=== PATIENT | female | born 2000 | race African-American/Black ===

== ENCOUNTER 2022-09-14 22:24 | Inpatient (IN) ==
[2022-09-14] MEDS ORDERED: MAGNESIUM SULFATE 1GM / D5W BAG IV STA (22:33)
--- NOTE | 2022-09-14 22:37 | Emergency Department Note ---
History of Present Illness General Chief complaint: Asthma Stated complaint: ASTHMA ATTACK Time Seen by Provider: 09/14/22 22:27 History of Present Illness This 22-year-old female with asthma presents to the ER for asthma exacerbation. EMS gave Solu-Medrol and 2 nebulizers. Patient states she has been wheezing for the past several days. She is on no maintenance medicines for her asthma. She tried her inhaler with no relief. Patient denies fever, chills, flulike illness. She has been hospitalized before for her asthma. She does not smoke. Home Medications Medication Instructions Recorded Confirmed Type albuterol sulfate 2.5 mg/3 mL 2.5 mg inhalation DIRECTED PRN 09/14/22 09/14/22 History (0.083 %) solution for nebulization Shortness Of Breath Or Wheezing albuterol sulfate 90 mcg/actuation 2 puff inhalation DIRECTED PRN 09/14/22 09/14/22 History aerosol inhaler Shortness Of Breath Or Wheezing Allergies Allergy/AdvReac Type Severity Reaction Status Date / Time cat dander Allergy Severe CAN Verified 09/14/22 22:50 TRIGGER ASTHMA ATTACK dog dander Allergy Severe CAN Verified 09/14/22 22:50 TRIGGER ASTHMA ATTACK house dust Allergy Severe CAN Verified 09/14/22 22:50 TRIGGER ASTHMA ATTACK pollen extracts Allergy Severe CAN Verified 09/14/22 22:50 TRIGGER ASTHMA ATTACK Past Med/Surg History Medical History (Updated 09/15/22 @ 01:04 by Romie Yanes MD) Asthma Social History Smoking Status: Never smoker Feels Safe at Home: Yes Review of Systems A total of 10 systems reviewed and were otherwise negative Physical Exam Vital Signs Vital Signs - 24 hr 09/14/22 22:32 09/14/22 22:57 09/14/22 22:57 Pulse Rate 126 H 122 H Pulse Rate [Apical] Respiratory Rate 28 H Respiratory Effort / Characteristics Respiratory Depth Respiratory Pattern Blood Pressure [Left Arm] Blood Pressure Mean [Left Arm] Pulse Oximetry 89 L 97 Oxygen Delivery Method Oxymask Oxymask Oxygen Flow Rate 2 Fraction of Inspired Oxygen Oxygen Flow Rate - Titration 2 Pulse Oximetry Post Tiitration 96 09/14/22 23:01 09/14/22 23:07 09/14/22 23:12 Pulse Rate Pulse Rate [Apical] 119 H 128 H Respiratory Rate 24 24 Respiratory Effort / Characteristics Accessory Muscle Use Non-Labored Spontaneous Respiratory Depth Normal Respiratory Pattern Blood Pressure [Left Arm] Blood Pressure Mean [Left Arm] Pulse Oximetry 98 95 Oxygen Delivery Method Room Air Oxymask Oxymask Oxygen Flow Rate 2 2 Fraction of Inspired Oxygen Oxygen Flow Rate - Titration Pulse Oximetry Post Tiitration 09/14/22 23:19 09/14/22 23:23 09/14/22 23:34 Pulse Rate 110 H Pulse Rate [Apical] 129 H 107 H Respiratory Rate 24 18 22 Respiratory Effort / Characteristics Accessory Muscle Use Labored Labored Accessory Muscle Use Labored Respiratory Depth Shallow Respiratory Pattern Rapid/Shallow Blood Pressure [Left Arm] 100/85 Blood Pressure Mean [Left Arm] 90 Pulse Oximetry 96 100 100 Oxygen Delivery Method Oxymask Nebulizer Oxygen Flow Rate 3 8 Fraction of Inspired Oxygen 35 Oxygen Flow Rate - Titration Pulse Oximetry Post Tiitration 09/15/22 00:07 Pulse Rate Pulse Rate [Apical] 118 H Respiratory Rate 22 Respiratory Effort / Characteristics Non-Labored Spontaneous Respiratory Depth Normal Respiratory Pattern Blood Pressure [Left Arm] 152/99 H Blood Pressure Mean [Left Arm] 116 Pulse Oximetry 100 Oxygen Delivery Method BiPAP Oxygen Flow Rate Fraction of Inspired Oxygen Oxygen Flow Rate - Titration Pulse Oximetry Post Tiitration PHYSICAL EXAM: Vital Signs: Reviewed Nurse's notes. Oxygen saturation was 98% on room air. GENERAL: Pleasant female with audible wheeze, Alert, oriented and coherent. The patient is barely able to speak in complete sentences. NECK: Supple, non-tender. CHEST: Symmetrical expansion. + retractions + accessory muscle use. HEART: Regular rate and normal heart sounds, LUNGS: Breath sounds equal but significantly diminished in intensity on both sides. Bilateral wheezes heard but no rales or pleuritic rub. SKIN: The skin was without rashes, erythema, edema, or bruising. There is no tenting of the skin. Capillary reflex less than 2 seconds. HEAD: Normocephalic atraumatic. EARS: External auditory canals clear, tympanic membranes pearly hill without robbie thema or effusion bilaterally. EYES: Pupils equal round and reactive to light and accommodation. Conjunctivae without injection, sclerae without icterus. Extraocular movements intact. NOSE: Patent, turbinates without inflammation or discharge. MOUTH: Mucous membranes moist. Pharynx without erythema or exudate. Uvula midline. Airway patent. Tongue does not deviate. ABDOMEN: Positive bowel sounds x 4. Normal tympanic percussion. Soft, nontender, without masses or organomegaly. Harding sign negative. No guarding or rebound tenderness. MUSCULOSKELETAL: No muscle atrophy, erythema, or edema noted. NEURO: Patient was alert and oriented to person place and time. Normal sensation to light and sharp touch. No focal neurological deficits. Course Administered Medications Diphenhydramine HCl (Diphenhydramine 50 Mg/Ml Vial) 25 mg IV Q4H PRN PRN Reason: Dyspnea Stop: 10/15/22 01:01 Last Admin: 09/15/22 01:25 Dose: 25 mg Documented By: LEONARDO Discontinued Medications Albuterol (Albut/Ipratrop 3mg/0.5mg Neb 3 Ml Vial) 3 ml NEB NOW STA; Protocol Stop: 09/14/22 23:11 Last Admin: 09/15/22 01:26 Dose: Not Given Documented By: LEONARDO Cetirizine HCl (Cetirizine Hcl 10 Mg Tablet) 10 mg PO NOW ONE Stop: 09/15/22 01:03 Last Admin: 09/15/22 01:26 Dose: 10 mg Documented By: LEONARDO Epinephrine (Racepinephrine 2.25% Nebu Soln 0.5 Ml Vial) 0.5 ml NEB NOW STA Stop: 09/14/22 23:11 Last Admin: 09/14/22 23:18 Dose: 0.5 ml Documented By: FRAN Famotidine (Famotidine 20mg/5ml Iv Push) 20 mg IV NOW STA Stop: 09/15/22 01:11 Last Admin: 09/15/22 01:29 Dose: 20 mg Documented By: LEONARDO Magnesium Sulfate/Dextrose (Magnesium Sulfate 1gm / D5w Bag) 2 gm IV NOW STA Stop: 09/14/22 22:34 Last Admin: 09/14/22 22:42 Dose: 2 gm Documented By: TRAN Critical Care Time Critical Care Time: Yes Total Critical Care Time: 35 I have personally spent 35 minutes of critical care time in the direct management of this patient. This includes bedside care, interpretation of diagnostic studies, and testing, discussion with consultants, patient, and family members, and other required patient management activities. This 35 minutes is in excess of all separately billable procedures. Medical Decision Making Medical Records Attestation: I reviewed the patient's medical records. Home Medications Current Medication List: was personally reviewed by me Laboratory Data Attestation: I reviewed the patient's lab results. 09/14/22 22:33 09/14/22 22:33 Lab Results 09/14/22 09/14/22 09/14/22 Range/Units 22:33 22:33 22:33 WBC 9.51 (4.8-10.8) K/ul RBC 4.58 (4.20-5.40) M/uL Hgb 13.1 (12.0-16.0) g/dl Hct 41.0 (37.0-47.0) % MCV 89.5 (80.0-100.0) fL MCH 28.6 (25.0-34.0) pg MCHC 32.0 (32.0-36.0) g/dL RDW Std Deviation 41.1 (36.4-46.3) fL RDW Coeff of Damion 12.6 (11.5-14.5) % Plt Count 211 (130-400) K/uL MPV 12.5 H (9.4-12.4) fL Immature Gran % (Auto) 0.6 % Neut % (Auto) 43.6 % Lymph % (Auto) 39.2 % [place] % (Auto) 6.1 % Eos % (Auto) 9.7 % Baso % (Auto) 0.8 % Neut # (Auto) 4.14 (1.40-6.50) K/uL Lymph # (Auto) 3.73 H (1.2-3.4) K/uL [place] # (Auto) 0.58 (0.11-0.59) K/uL Eos # (Auto) 0.92 H (0-0.50) K/uL Baso # (Auto) 0.08 (0-0.2) K/uL Immature Gran # (Auto) 0.06 (0.01-0.20) K/uL VBG pH (7.36-7.41) VBG pCO2 (38-50) mmHg VBG pO2 mmHg VBG HCO3 mmol/L VBG O2 Saturation % VBG Base Excess mEq/L Sodium 139 (136-145) mmol/L Potassium 4.0 (3.5-5.1) mmol/L Chloride 104 (98-107) mmol/L Carbon Dioxide 29 (21-32) mmol/L Anion Gap 6 (3-11) BUN 10 (6-23) mg/dl Creatinine 0.93 (0.6-1.2) mg/dl Est Cr Clr Drug Dosing Not Reportable Est GFR ( Amer) 101.8 ml/min Est GFR (Non-Af Amer) 87.9 ml/min BUN/Creatinine Ratio 10.8 (10-20) Glucose 159 H (70-99(Fasting)) mg/dl Calcium 8.9 (8.6-10.3) mg/dl Total Bilirubin 0.2 (0.2-1.0) mg/dl AST 10 L (13-39) U/L ALT 7 (7-52) U/L Alkaline Phosphatase 60 (34-104) U/L Troponin I High Sens 4.1 (0-14) pg/ml Total Protein 7.0 (6.0-8.3) gm/dl Albumin 4.2 (3.4-5.0) gm/dl Globulin 2.8 (2.5-4.0) gm/dl Albumin/Globulin Ratio 1.5 (0.9-2) HCG, Qual Negative (Negative) SARS-CoV-2, RNA, NAAT (NEGATIVE) 09/14/22 09/14/22 Range/Units 22:56 23:24 WBC (4.8-10.8) K/ul RBC (4.20-5.40) M/uL Hgb (12.0-16.0) g/dl Hct (37.0-47.0) % MCV (80.0-100.0) fL MCH (25.0-34.0) pg MCHC (32.0-36.0) g/dL RDW Std Deviation (36.4-46.3) fL RDW Coeff of Damion (11.5-14.5) % Plt Count (130-400) K/uL MPV (9.4-12.4) fL Immature Gran % (Auto) % Neut % (Auto) % Lymph % (Auto) % [place] % (Auto) % Eos % (Auto) % Baso % (Auto) % Neut # (Auto) (1.40-6.50) K/uL Lymph # (Auto) (1.2-3.4) K/uL [place] # (Auto) (0.11-0.59) K/uL Eos # (Auto) (0-0.50) K/uL Baso # (Auto) (0-0.2) K/uL Immature Gran # (Auto) (0.01-0.20) K/uL VBG pH 7.21 L (7.36-7.41) VBG pCO2 74 H (38-50) mmHg VBG pO2 28 mmHg VBG HCO3 30 mmol/L VBG O2 Saturation < 60.0 % VBG Base Excess -0.3 mEq/L Sodium (136-145) mmol/L Potassium (3.5-5.1) mmol/L Chloride (98-107) mmol/L Carbon Dioxide (21-32) mmol/L Anion Gap (3-11) BUN (6-23) mg/dl Creatinine (0.6-1.2) mg/dl Est Cr Clr Drug Dosing Est GFR ( Amer) ml/min Est GFR (Non-Af Amer) ml/min BUN/Creatinine Ratio (10-20) Glucose (70-99(Fasting)) mg/dl Calcium (8.6-10.3) mg/dl Total Bilirubin (0.2-1.0) mg/dl AST (13-39) U/L ALT (7-52) U/L Alkaline Phosphatase (34-104) U/L Troponin I High Sens (0-14) pg/ml Total Protein (6.0-8.3) gm/dl Albumin (3.4-5.0) gm/dl Globulin (2.5-4.0) gm/dl Albumin/Globulin Ratio (0.9-2) HCG, Qual (Negative) SARS-CoV-2, RNA, NAAT NEGATIVE (NEGATIVE) Imaging Data Attestation: I personally reviewed and interpreted this imaging study as follows: MDM Narrative Prior records/ancillary studies reviewed. Triage Nursing notes reviewed. Additional history obtained from the EMS. The patient's history was concerning for respiratory difficulties. Differential diagnosis: Etiologies such as infections, reactive airway disease, pneumonia, pneumothorax, COPD, CHF, cardiac ischemia, pulmonary embolism, musculoskeletal, gastrointestinal, as well as others were entertained. Physical examination: As above. ER treatment provided: An order was placed for continuous cardiac monitoring. The monitor shows a rate of 60-1 50 with a sinus rhythm per my interpretation. EMS gave Solu-Medrol and 2 nebulizers. Patient was given magnesium and fluids. Racemic epi was ordered Patient was placed on BiPAP. On reassessment the patient felt better. Diagnostic interpretation by me: The electrocardiogram was ordered for SOB. ECG:Normal sinus poor baseline, no acute ST-T wave changes. Impression sinus ta chycardia 132 independentlyinterpreted by myself I think arrhythmia is unlikely. EKG shows normal sinus rhythm with no interval abnormalities such as QT prolongation or WPW. There are no findings to suggest Brugada syndrome. Cardiac monitoring in the emergency department reveals no tachycardic or bradycardic dysrhythmia. Hypertrophic cardiomyopathy was considered but there are no clear historical elements pointing toward this. EKG is not suggestive. The QRS voltage is not extremely large and there are no suggestive Q waves. The labs Independently Interpreted by myself revealed no worrisome leukocytosis, negative hCG. VBG was reviewed and patient was placed on BiPAP. Imaging studies: Chest x-ray with no acute consolidation, pneumothorax or free air per my independent interpretation Patient was first seen at 2230 and observation time began at 2230 and was necessary in order to determine any infectious, toxicologic or respiratory etiology. Upon reevaluation, 1 hours of observation feel that the patient should be admitted. Consultation: A consultation was placed with the hospitalist. The case was discussed and diagnostics were reviewed. The patient was evaluated in the ER for further treatment. This appears to be consistent with status asthmaticus who was acidotic and hypercarbic. Patient still struggling to breathe. VBG was reviewed. She was placed on BiPAP. She was medicated as above. EMS gave steroids. She had received 2 nebulizers by EMS. No pneumonia on x-ray. Medicine was contacted and the case was discussed. Patient will be admitted to the medical service. Labs and diagnostics were independent interpreted by myself. Patient is agreeable to treatment plan. By the evaluation outlined above emergent etiologies such as CHF, cardiac ischemia, pulmonary embolism, pneumonia, pneumothorax, musculoskeletal, serious bacterial infections, as well as others were deemed relatively unlikely. The pt informed about the findings as listed above. All questions were answered and pleased with the treatment. The chart was completed utilizing [employer] voice recognition software. Grammatical errors, random word insertions, pronoun errors, and incomplete sentences are an occassional consequence of this system due to software limitations, ambient noise, and hardware issues. Any formal questions or concerns about the content, text, or information contained within the body of this dictation should be directly addressed to the physician certified dental assistant for clarification. Impression & Plan Asthma with status asthmaticus Discharge Plan Visit Data Chief Complaint: Asthma Stated Complaint: ASTHMA ATTACK ED Provider: Ricco Putnam ED Midlevel Provider: Amy Templeton Discharge Problem: Asthma with status asthmaticus Patient Disposition: Admitted As Inpatient Condition: Good Forms Stand Alone Forms: [facility] Prescriptions Prescriptions: No Action albuterol sulfate 2.5 mg /3 mL (0.083 %) Solution For Nebulization 2.5 mg INHALATION DIRECTED PRN (Reason: Shortness Of Breath Or Wheezing) albuterol sulfate 90 mcg/actuation Hfa Aerosol Inhaler 2 puff INHALATION DIRECTED PRN (Reason: Shortness Of Breath Or Wheezing) Referrals Referrals: PCP,NO [Physician] - Asthma with status asthmaticus Qualifiers: Asthma severity: severe Asthma persistence: persistent Qualified Code(s): J45.52 - Severe persistent asthma with status asthmaticus
[2022-09-14 22:53] LABS: Basophils # (auto) 0.08 K/uL (0-0.2); Basophils % (auto) 0.8 %; Eosinophils # (auto) 0.92 K/uL (0-0.50); Eosinophils % (auto) 9.7 %; Hemoglobin 13.1 g/dl (12.0-16.0); Immature Granulocytes # (auto) 0.06 K/uL (0.01-0.20); Immature Granulocytes % (auto) 0.6 %; Lymphocytes # (auto) 3.73 K/uL (1.2-3.4); Lymphocytes % (auto) 39.2 %; Mean Corpuscular Hemoglobin 28.6 pg (25.0-34.0); Mean Corpuscular Volume 89.5 fL (80.0-100.0); Mean Platelet Volume 12.5 fL (9.4-12.4); Monocytes # (auto) 0.58 K/uL (0.11-0.59); Monocytes % (auto) 6.1 %; Neutrophils # (auto) 4.14 K/uL (1.40-6.50); Neutrophils % (auto) 43.6 %; Platelet Count 211 K/uL (130-400); RDW Coefficient of Variation 12.6 % (11.5-14.5); RDW Standard Deviation 41.1 fL (36.4-46.3); Red Blood Count 4.58 M/uL (4.20-5.40); White Blood Count 9.51 K/ul (4.8-10.8)
[2022-09-14 23:05] LABS: Alanine Aminotransferase 7 U/L (7-52); Albumin Globulin Ratio 1.5 (0.9-2); Albumin Level 4.2 gm/dl (3.4-5.0); Alkaline Phosphatase 60 U/L (34-104); Anion Gap 6 (3-11); Aspartate Aminotransferase 10 U/L (13-39); BUN Creatinine Ratio 10.8 (10-20); Bilirubin,Total 0.2 mg/dl (0.2-1.0); Blood Urea Nitrogen 10 mg/dl (6-23); Calcium 8.9 mg/dl (8.6-10.3); Carbon Dioxide 29 mmol/L (21-32); Chloride 104 mmol/L (98-107); Est GFR (African American) 101.8 ml/min; Est GFR (Non-African American) 87.9 ml/min; Globulin 2.8 gm/dl (2.5-4.0); Glucose 159 mg/dl (70-99(Fasting)); Sodium 139 mmol/L (136-145)
[2022-09-14 23:05] LABS: Base Excess VBG -0.3 mEq/L; HCO3 VBG 30 mmol/L; Oxygen Saturation VBG < 60.0 %; PCO2 VBG 74 mmHg (38-50); PO2 VBG 28 mmHg; pH VBG 7.21 (7.36-7.41)
[2022-09-14 23:08] LABS: Pregnancy Test, Serum Negative (Negative)
[2022-09-14] MEDS ORDERED: ALBUT/IPRATROP 3MG/0.5MG NEB 3 ML VIAL NEB STA (23:10)
[2022-09-14] MEDS ORDERED: RACEPINEPHRINE 2.25% NEBU SOLN 0.5 ML VIAL NEB STA (23:10)
[2022-09-14 23:11] LABS: Troponin I High Sensitivity 4.1 pg/ml (0-14)
--- NOTE | 2022-09-15 00:18 | History & Physical Report ---
Date of Service September 15, 2022 Assessment & Plan (1) Asthmatic bronchitis with acute exacerbation: (2) Allergic symptoms: (3) Asthma with status asthmaticus: Plan Status asthmaticus/asthma with acute bronchitis/multiple allergies- Received Solu-Medrol and nebulizers x2 by EMS in route From the ED received magnesium sulfate 2 g IV, racemic epi treatment and a DuoNeb Solu-Medrol 40 mg IV every 8 hours Famotidine 20 mg IV every 12 hours Benadryl 25 mg IV every 4 hours as needed Cetirizine 10 mg p.o. now and every morning Duonebs every 4 hours while awake and every 2 hours when necessary. Continue BiPAP for now, taper downward to nasal cannula as symptoms improve Admit to monitored bed Racemic epi if recurrent symptoms unresponsive to above History of Present Illness Chief Complaint: The patient presents to the emergency department with shortness of breath and more frequent use of nebulizer over the past several days, which in particular worsened over the past 24 hours. She was brought to the emergency department by EMS, who gave her Solu-Medrol and 2 nebulizer treatments in route. Primary Care Provider: [facility] The patient is a 22-year-old female with a past medical history including asthma and asthma exacerbations, multiple allergies including to dust, pollen, cats and dogs. The patient presents as noted above. Upon arrival to the emergency department she was placed on BiPAP, and given magnesium sulfate 2 g IV, racemic epi x1, and a DuoNeb treatment. The patient did stabilize somewhat to these treatments, but was still wheezing considerably, and was referred for evaluation for admission. Her previous hospital admission was August 2021. She does also report a cough of green discolored sputum Allergies Allergy/AdvReac Type Severity Reaction Status Date / Time cat dander Allergy Severe CAN Verified 09/14/22 22:50 TRIGGER ASTHMA ATTACK dog dander Allergy Severe CAN Verified 09/14/22 22:50 TRIGGER ASTHMA ATTACK house dust Allergy Severe CAN Verified 09/14/22 22:50 TRIGGER ASTHMA ATTACK pollen extracts Allergy Severe CAN Verified 09/14/22 22:50 TRIGGER ASTHMA ATTACK Home Medications Medication Instructions Recorded Confirmed Type albuterol sulfate 2.5 mg/3 mL 2.5 mg inhalation DIRECTED PRN 09/14/22 09/14/22 History (0.083 %) solution for nebulization Shortness Of Breath Or Wheezing albuterol sulfate 90 mcg/actuation 2 puff inhalation DIRECTED PRN 09/14/22 09/14/22 History aerosol inhaler Shortness Of Breath Or Wheezing Past Med/Surg History Medical History (Updated 09/15/22 @ 01:04 by Romie Yanes MD) Asthma Social History Smoking Status: Never smoker Feels Safe at Home: Yes Review of Systems Review of Systems: the patient denies chest pain, palpitations, lower extremity swelling, sore throat, fevers, chills, sweats, nausea, vomiting, diarrhea , constipation, abdominal pain, pelvic pain, blood in urine or stool, dysuria, urinary frequency or urgency, lightheadedness, dizziness, headache, memory loss, loss of consciousness, rash, abnormal bruising or bleeding, imbalance, focal or generalized weakness, numbness or tingling in arms or legs, generalized arthralgias or myalgias, back or neck pain, or night sweats. The review of systems is otherwise negative other than for that already noted above, and at least 10 systems have been reviewed. Physical Exam Physical Exam: The patient is awake, alert and oriented 3, well developed and well nourished, normocephalic and atraumatic, lying in bed and in no acute distress. HEENT--PERRL, EOMI, mucous membranes and oropharynx dry. Neck--supple. No JVD. No bruits. Thyroid normal, trachea midline, no adenopathy. Heart--normal S1 and S2. No murmurs, rubs or gallops. Lungs--diffuse inspiratory and extra wheezing bilaterally., Mild respiratory distress, no accessory muscle use. Abdomen--normal bowel sounds and soft. Nontender. Nondistended, no hernias or masses, no organomegaly. Extremities--no cyanosis or clubbing. No edema. Dermatologic--normal skin turgor, normal color, no abnormal lymph nodes, no rash. Neurologic--cranial nerves II through XII grossly intact. Rheumatologic--normal range of motion. Psychiatric--normal affect. Results & Data Results & Data Vital Signs (Past 12 Hours) Vital Signs Pulse Pulse Resp BP Pulse Ox O2 Del Method O2 Flow Rate 09/15/22 00:07 118 H 22 152/99 H 100 BiPAP 09/14/22 23:34 110 H 22 100 09/14/22 23:23 107 H 18 100/85 100 Nebulizer 8 09/14/22 23:19 129 H 24 96 Oxymask 3 09/14/22 23:12 128 H 24 95 Oxymask 2 09/14/22 23:07 119 H 24 98 Oxymask 2 09/14/22 23:01 Room Air 09/14/22 22:57 122 H 28 H 97 Oxymask 2 09/14/22 22:57 89 L Oxymask 09/14/22 22:32 126 H FiO2 09/15/22 00:07 09/14/22 23:34 35 09/14/22 23:23 09/14/22 23:19 09/14/22 23:12 09/14/22 23:07 09/14/22 23:01 09/14/22 22:57 09/14/22 22:57 09/14/22 22:32 Laboratory Results Laboratory Results WBC 9.51 K/ul (4.8-10.8) 09/14/22 22:33 RBC 4.58 M/uL (4.20-5.40) 09/14/22 22:33 Hgb 13.1 g/dl (12.0-16.0) 09/14/22 22:33 Hct 41.0 % (37.0-47.0) 09/14/22 22:33 MCV 89.5 fL (80.0-100.0) 09/14/22 22:33 MCH 28.6 pg (25.0-34.0) 09/14/22 22:33 MCHC 32.0 g/dL (32.0-36.0) 09/14/22 22:33 RDW Std Deviation 41.1 fL (36.4-46.3) 09/14/22 22:33 RDW Coeff of Damion 12.6 % (11.5-14.5) 09/14/22 22:33 Plt Count 211 K/uL (130-400) 09/14/22 22:33 MPV 12.5 fL (9.4-12.4) H 09/14/22 22:33 Immature Gran % (Auto) 0.6 % 09/14/22 22:33 Neut % (Auto) 43.6 % 09/14/22 22:33 Lymph % (Auto) 39.2 % 09/14/22 22:33 [place] % (Auto) 6.1 % 09/14/22 22:33 Eos % (Auto) 9.7 % 09/14/22 22:33 Baso % (Auto) 0.8 % 09/14/22 22:33 Neut # (Auto) 4.14 K/uL (1.40-6.50) 09/14/22 22: Lymph # (Auto) 3.73 K/uL (1.2-3.4) H 09/14/22 22:33 [place] # (Auto) 0.58 K/uL (0.11-0.59) 09/14/22 22:33 Eos # (Auto) 0.92 K/uL (0-0.50) H 09/14/22 22:33 Baso # (Auto) 0.08 K/uL (0-0.2) 09/14/22 22: Immature Gran # (Auto) 0.06 K/uL (0.01-0.20) 09/14/22 22:33 VBG pH 7.21 (7.36-7.41) L 09/14/22 22:56 VBG pCO2 74 mmHg (38-50) H 09/14/22 22:56 VBG pO2 28 mmHg 09/14/22 22:56 VBG HCO3 30 mmol/L 09/14/22 22:56 VBG O2 Saturation < 60.0 % 09/14/22 22:56 VBG Base Excess -0.3 mEq/L 09/14/22 22:56 Sodium 139 mmol/L (136-145) 09/14/22 22:33 Potassium 4.0 mmol/L (3.5-5.1) 09/14/22 22: Chloride 104 mmol/L (98-107) 09/14/22 22: Carbon Dioxide 29 mmol/L (21-32) 09/14/22 22:33 Anion Gap 6 (3-11) 09/14/22 22:33 BUN 10 mg/dl (6-23) 09/14/22 22:33 Creatinine 0.93 mg/dl (0.6-1.2) 09/14/22 22: Est Cr Clr Drug Dosing Not Reportable 03/29/23 22:33 Est GFR ( Amer) 101.8 ml/min 09/14/22 22:33 Est GFR (Non-Af Amer) 87.9 ml/min 09/14/22 22:33 BUN/Creatinine Ratio 10.8 (10-20) 09/14/22 22:33 Glucose 159 mg/dl (70-99(Fasting)) H 09/14/22 22:33 Calcium 8.9 mg/dl (8.6-10.3) 09/14/22 22:33 Total Bilirubin 0.2 mg/dl (0.2-1.0) 09/14/22 22:33 AST 10 U/L (13-39) L 09/14/22 22:33 ALT 7 U/L (7-52) 09/14/22 22:33 Alkaline Phosphatase 60 U/L (34-104) 09/14/22 22:33 Troponin I High Sens 4.1 pg/ml (0-14) 09/14/22 22:33 Total Protein 7.0 gm/dl (6.0-8.3) 09/14/22 22:33 Albumin 4.2 gm/dl (3.4-5.0) 09/14/22 22:33 Globulin 2.8 gm/dl (2.5-4.0) 09/14/22 22:33 Albumin/Globulin Ratio 1.5 (0.9-2) 09/14/22 22:33 HCG, Qual Negative (Negative) 09/14/22 22:33 SARS-CoV-2, RNA, NAAT NEGATIVE (NEGATIVE) 09/14/22 23:24 Code Status & VTE Plan Code Status Full code VTE Prophylaxis Plan VTE Prophylaxis will be ordered: Yes PG Care Time/CCT Total # of Minutes Spent Total Time Spent with Patient: Total time spent is greater than 50% in coordination of care (as documented) at patient's floor/unit and/or counseling patient: Coding Level of Care Code 27070 INT INP/OBS CARE 3/75MIN Diagnoses Asthmatic bronchitis with acute exacerbation J45.901 Allergic symptoms T78.40XA Asthma with status asthmaticus J45.52 Asthma persistence: persistent Asthma severity: severe (3) Asthma with status asthmaticus Asthma persistence: persistent Asthma severity: severe Qualified Code(s): J45.52 - Severe persistent asthma with status asthmaticus
[2022-09-15] MEDS ORDERED: diphenhydrAMINE 50 MG/ML VIAL IV PRN (01:02)
[2022-09-15] MEDS ORDERED: CETIRIZINE HCL 10 MG TABLET PO ONE (01:02)
[2022-09-15] MEDS ORDERED: FAMOTIDINE 20MG/5ML IV PUSH IV STA (01:10)
[2022-09-15] MEDS ORDERED: ONDANSETRON INJ 2 MG/ML 2 ML VIAL IV PRN (01:43)
[2022-09-15] MEDS ORDERED: ACETAMINOPHEN 325 MG TAB PO PRN (01:43)
--- NOTE | 2022-09-15 01:52 | Emergency Department Note ---
ED Visit Note Physician Evaluation Note: Patient was seen in conjunction with the midlevel provider. Please see the midlevel provider note for full details of the patient's visit. I have personally evaluated and examined this patient. Patient presented to the ED with shortness of breath, this is in the setting of known asthma, patient arrived in respiratory distress, was given multiple DuoNeb breathing treatments and racemic epinephrine, IV magnesium, patient was ultimately placed on BiPAP, venous blood gas shows evidence of acidosis with hypercarbia. On my assessment the patient is on BiPAP, she is feeling much improved, still does have some moderate wheezing on my exam but otherwise states that her breathing is improved, she does not appear to be in acute distress on my evaluation. Patient is symptomatically improved however given her lab work and significant wheezing she will be maintained on BiPAP and admitted to the hospitalist service for further care. Patient was in agreement to this plan and she was admitted in improved condition. I agree with assessment and plan of FAHAD Segovia DO .
[2022-09-15] MEDS: methylPREDNISolone 40 MG in SYRINGE 0 ML IV SCH ×3 (02:00→17:15)
[2022-09-15] MEDS: AZITHROMYCIN 500 MG in DEXTROSE 5% 250 ML IV SCH (02:05)
[2022-09-15] MEDS ORDERED: ALBUT/IPRATROP 3MG/0.5MG NEB 3 ML VIAL ONE (02:27)
[2022-09-15] MEDS ORDERED: ALBUT/IPRATROP 3MG/0.5MG NEB 3 ML VIAL NEB STA (04:32)
[2022-09-15] MEDS: ALBUT/IPRATROP 3MG/0.5MG NEB 3 ML VIAL NEB SCH ×5 (07:00→19:45)
--- NOTE | 2022-09-15 07:18 | XRay Report ---
XR chest 1V portable CLINICAL HISTORY: dyspnea TECHNIQUE: Single frontal radiograph of the chest was obtained. Comparison: None available at the time of this dictation. FINDINGS: No lines and tubes are seen. The cardiomediastinal silhouette is normal. The lungs are clear. No evid ence of pleural effusion or pneumothorax. IMPRESSION: No acute chest disease. ACT 112: Negative or not required by law. Electronically signed by: Manav García M.D. 09/15/2022 7:16 AM
[2022-09-15] MEDS: FAMOTIDINE 20 MG in SYRINGE 3 ML IV SCH ×2 (09:03→20:28)
[2022-09-15] MEDS: CETIRIZINE HCL 10 MG TABLET PO SCH (09:03)
[2022-09-15 09:28] LABS: Base Excess VBG -3.7 mEq/L; HCO3 VBG 22 mmol/L; Oxygen Saturation VBG 94.6 %; PCO2 VBG 42 mmHg (38-50); PO2 VBG 67 mmHg; pH VBG 7.33 (7.36-7.41)
[2022-09-15 10:06] LABS: Calcium 9.2 mg/dl (8.6-10.3); Magnesium 2.1 mg/dl (1.7-2.4); Potassium 4.5 mmol/L (3.5-5.1)
[2022-09-15 10:14] LABS: BUN Creatinine Ratio 12.9 (10-20); Est GFR (African American) 143.5 ml/min; Est GFR (Non-African American) 123.9 ml/min; Phosphorus 3.8 mg/dl (2.5-4.9)
[2022-09-15 10:20] LABS: Adenovirus PCR Not Detected (NotDetected); Bordetella parapertussis PCR Not Detected (NotDetected); Bordetella pertussis PCR Not Detected (NotDetected); Chlamydia pneumoniae PCR Not Detected (NotDetected); Coronavirus 229E PCR Not Detected (NotDetected); Coronavirus CoV-2 (COVID19)PCR Not Detected (NotDetected); Coronavirus HKU1 PCR Not Detected (NotDetected); Coronavirus NL63 PCR Not Detected (NotDetected); Coronavirus OC43PCR Not Detected (NotDetected); Human Metapneumovirus PCR Not Detected (NotDetected); Influenza A PCR Not Detected (NotDetected); Influenza B PCR Not Detected (NotDetected); Mycoplasma pneumoniae PCR Not Detected (NotDetected); Parainfluenza Virus 1 PCR Not Detected (NotDetected); Parainfluenza Virus 2 PCR Not Detected (NotDetected); Parainfluenza Virus 3 PCR Not Detected (NotDetected); Parainfluenza Virus 4 PCR Not Detected (NotDetected); Respiratory Syncytial VirusPCR Not Detected (NotDetected); Rhinovirus/Enterovirus PCR Not Detected (NotDetected)
--- NOTE | 2022-09-15 14:43 | Hospitalist Progress Note ---
Date of Service September 15, 2022 Assessment & Plan (1) Acute respiratory failure with hypoxia and hypercarbia: Plan: 2nd to #2 SEVERE resp failure with resp acidosis and very high pCO2 fortunately she improved with use of BIPAP all night now on to NC o2 VBG this am improved cont to Rx #2 (2) Asthma with status asthmaticus: Plan: SEVERE exacerbation in the setting of uncontrolled, severe, persistent asthma with daily symptoms. cont IV steroids 40mg TID. cont nebs. add mucinex. flutter valve/incentive toro. pulmonary consultation - defer to them selection of controller agents. she will need intensive outpatient f/u given the severity of her asthma. send sputum cx - r/o bacterial superinfection. resp BioFire panel obtained - completely negative. allergy induced?? does have eosinophilia. (3) Severe persistent asthma: Plan: will need ICS/LABA upon discharge - high dose consider singulair - likely has underlying allergies needs outpatient pulm f/u and PFTs, etc needs education about her asthma - triggers, etc see above appreciate pulm consutation (4) Snoring: Plan: needs sleep study marcos after discharge (5) Allergic symptoms: Plan: consider singulair cont zyrtec consider nasal steroid (6) Peripheral eosinophilia: (7) Obesity (BMI 30.0-34.9): Plan: check a1c check TSH check 25-OH vit D - there is strong association with severe vit D def + asthma Admission and Anticipated Discharge Date Admission Date: September 15, 2022 Subjective patient has had asthma since being a young child father has asthma last hospitalization - 06/2021 she has had daily asthma symptoms "for months" apparently was treated for ?acute sinusitis 3-4 months ago back home and "felt better for a week" since then has been using daily albuterol via nebulizer she is not on controller agents she has cough, congestion, and dyspnea on exertion with minimal exertion for months 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 and is severely limited by her asthma her roommates state she does snore loudly they have a dog at their apartment, and roommates smoke Hookah she herself does not use tobacco Review of Systems Review of Systems: gen - no fevers cv - chest tightness pulm - cough/sputum production/severe wheezing/dyspnea GI - no abd pain Physical Exam Physical Exam: gen - obese, audible wheezing from across the room mouth - MMM neck - no obvious JVD heart - tachy, s1 s2, no murmur lungs - EXTENSIVE wheezing all lung segments ant & post; no rales; airation fair; mild tachypnea noted abd - soft NT ND BS+ ext - no edema, pulses 2+ b/l psych - a/o x 3 Results & Data Results & Data Vital Signs (Past 12 Hours) Vital Signs Temp Pulse Pulse Resp BP Pulse Ox O2 Del Method 09/15/22 11:22 36.3 C L 122 H 19 117/86 99 Nasal Cannula 09/15/22 08:00 Nasal Cannula 09/15/22 10:39 117 H 18 93 Nasal Cannula 09/15/22 09:21 110 H 24 89 L Room Air 09/15/22 08:30 36.5 C 101 H 21 130/77 99 Nasal Cannula 09/15/22 07:00 94 H 21 99 BiPAP 09/15/22 04:55 102 H 98 09/15/22 04:43 109 H 24 96 Nasal Cannula 09/15/22 03:05 105 H 22 96 O2 Flow Rate FiO2 09/15/22 11:22 2 09/15/22 08:00 2 09/15/22 10:39 1.5 09/15/22 09:21 09/15/22 08:30 2 09/15/22 07:00 30 09/15/22 04:55 30 09/15/22 04:43 1 09/15/22 03:05 35 Laboratory Results Laboratory Results - last 24 hr 09/15/22 09/15/22 09/15/22 09:09 09:09 09:15 VBG pH 7.33 L VBG pCO2 42 VBG pO2 67 VBG HCO3 22 VBG O2 Saturation 94.6 VBG Base Excess -3.7 Sodium 138 Potassium 4.5 Chloride 107 Carbon Dioxide 23 Anion Gap 8 BUN 9 Creatinine 0.70 Est Cr Clr Drug Dosing 129.0 Est GFR ( Amer) 143.5 Est GFR (Non-Af Amer) 123.9 BUN/Creatinine Ratio 12.9 Glucose 188 H Calcium 9.2 Phosphorus 3.8 Magnesium 2.1 Adenovirus (PCR) Not Detected B. pertussis DNA (PCR) Not Detected B.parapertussis DNA PCR Not Detected C. pneumoniae DNA (PCR) Not Detected Coronavirus OC43 (PCR) Not Detected Coronavirus HKU1 (PCR) Not Detected Coronavirus 229E (PCR) Not Detected SARS-CoV-2 (PCR) Not Detected Coronavirus NL63 (PCR) Not Detected Human Metapneumovir PCR Not Detected Influenza Type A (PCR) Not Detected Influenza Type B (PCR) Not Detected M. pneumoniae (PCR) Not Detected Parainfluenza 1 (PCR) Not Detected Parainfluenza 2 (PCR) Not Detected Parainfluenza 3 (PCR) Not Detected Parainfluenza 4 (PCR) Not Detected RSV (PCR) Not Detected Entero/Rhino (PCR) Not Detected PG Care Time/CCT Total # of Minutes Spent Total Time Spent with Patient: Total time spent is greater than 50% in coordination of care (as documented) at patient's floor/unit and/or counseling patient: Coding Level of Care Code 36647 SUB INP/OBS CARE 3/50MIN Diagnoses Acute respiratory failure with hypoxia and hypercarbia J96.01; J96.02 Asthma with status asthmaticus J45.52 Asthma persistence: persistent Asthma severity: severe Severe persistent asthma J45.50 Snoring R06.83 Allergic symptoms T78.40XA Peripheral eosinophilia D72.19 Obesity (BMI 30.0-34.9) E66.9 (2) Asthma with status asthmaticus Asthma persistence: persistent Asthma severity: severe Qualified Code(s): J45.52 - Severe persistent asthma with status asthmaticus
--- NOTE | 2022-09-15 15:02 | Pulmonary Consultation ---
Date of Consultation September 15, 2022 Assessment & Plan (1) Asthmatic bronchitis with acute exacerbation: (2) Peripheral eosinophilia: Plan Patient presenting with status asthmaticus and hypercarbia. She remains very bronchospastic on exam and is very symptomatic. We will start the patient on Brovana and Pulmicort twice daily in addition to the current DuoNebs she is receiving. Continue with IV Solu-Medrol. She had evidence of peripheral eosinophilia on admission. She likely has Th2 mediated asthma. She would benefit from high-dose maintenance ICS/LABA inhaler upon discharge. She does have a peak flow meter at home and notes that she rarely uses it. I encouraged her to use this on a regular basis to monitor for early signs of asthma exacerbation. She would benefit from outpatient PFTs and NIOX testing. She may eventually become a candidate for biologic therapy if she continues to have flares despite the use of high-dose ICS/LAMA inhaler. Thank you for allowing me to participate in the care of the patient. We will continue to follow along with you. History of Present Illness Reason for Consultation: Asthma exacerbation Attending Physician: Benjy Hung History of Present Illness History is obtained from discussion with the hospitalist, review of the ER and admitting notes and interview with patient. 22-year-old female with a history of allergic rhinitis and asthma who presented to the hospital yesterday via EMS due to altered mental status. She notes that she was in dance class and suddenly lost consciousness. She came to while in the ambulance. She was found to be hypercarbic on VBG on arrival to the ER. She notes that she was very short of breath and had chest tightness. She does feel that her symptoms have improved today, but she continues to have conversational dyspnea and becomes short of breath soon after completing her nebulizer treatment. 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 She transferred from the [employer] to [facility]. She notes that last year she had an exacerbation and was hospitalized at [place]. She denies any prior history of intubation. She denies ever previously being on BiPAP aside for yesterday evening. She notes that she had only course of prednisone in the past year. She did note that she was diagnosed with "a bacterial infection" in May and was given antibiotics which she later revealed was RSV. I informed her that RSV is not a bacterial infection but rather a viral infection. She notes that she uses her albuterol inhaler 3-4 times a day when out and about outside of her apartment. She uses her nebulizer 4-5 times a day. She notes that she has trouble sleeping due to shortness of breath and this is gotten worse over the past week. She denies any vaping, tobacco abuse or illicit drug abuse. She notes that she did smoke marijuana when in high school about 3 to 4 years ago. Allergies Allergy/AdvReac Type Severity Reaction Status Date / Time cat dander Allergy Severe CAN Verified 09/14/22 22:50 TRIGGER ASTHMA ATTACK dog dander Allergy Severe CAN Verified 09/14/22 22:50 TRIGGER ASTHMA ATTACK house dust Allergy Severe CAN Verified 09/14/22 22:50 TRIGGER ASTHMA ATTACK pollen extracts Allergy Severe CAN Verified 09/14/22 22:50 TRIGGER ASTHMA ATTACK Home Medications Medication Instructions Recorded Confirmed Type albuterol sulfate 2.5 mg/3 mL 2.5 mg inhalation DIRECTED PRN 09/14/22 09/14/22 History (0.083 %) solution for nebulization Shortness Of Breath Or Wheezing albuterol sulfate 90 mcg/actuation 2 puff inhalation DIRECTED PRN 09/14/22 09/14/22 History aerosol inhaler Shortness Of Breath Or Wheezing Patient History Medical History (Updated 09/15/22 @ 15:00 by Jean Carlos Shepard MD) Asthma Peripheral eosinophilia Social History Smoking Status: Never smoker Hx Alcohol Use: No Hx Substance Use: No Preferred Language: Puerto Rican Communication Ability: Effective Principal Solutions Architect Required: No Beliefs That Will Affect Care: None Current Living Situation: Alone Current Living Situation Comment: student at [employer] Other Information That Helps Us Care for You: No Feels Safe at Home: Yes Safety Concerns: Feels Safe At This Time Assistive Devices: None Review of Systems Review of Systems: All systems reviewed & are unremarkable except as noted in HPI & below Physical Exam Physical Exam: PHYSICAL EXAM: Vital Signs: Reviewed Nurse's notes. MENTAL STATUS: Alert, oriented and coherent. NECK: Supple, non-tender. CHEST: Symmetrical expansion, no retractions or use of accessory muscles of respiration. HEART: Regular rate and normal heart sounds, no murmur, gallop or rub. LUNGS: Breath sounds equal but significantly diminished in intensity on both sides. Bilateral wheezes heard but no rales or pleuritic rub. SKIN: Warm, dry, no lesions or cyanosis. ABDOMEN: Soft, non-tender, no masses or organs felt. EXTREMITIES: No swelling, cyanosis or tenderness in the arms or legs. Results & Data Results & Data Vital Signs (Past 12 Hours) Vital Signs Temp Pulse Pulse Resp BP Pulse Ox O2 Del Method 09/15/22 11:22 36.3 C L 122 H 19 117/86 99 Nasal Cannula 09/15/22 08:00 Nasal Cannula 09/15/22 10:39 117 H 18 93 Nasal Cannula 09/15/22 09:21 110 H 24 89 L Room Air 09/15/22 08:30 36.5 C 101 H 21 130/77 99 Nasal Cannula 09/15/22 07:00 94 H 21 99 BiPAP 09/15/22 04:55 102 H 98 09/15/22 04:43 109 H 24 96 Nasal Cannula 09/15/22 03:05 105 H 22 96 O2 Flow Rate FiO2 09/15/22 11:22 2 09/15/22 08:00 2 09/15/22 10:39 1.5 09/15/22 09:21 09/15/22 08:30 2 09/15/22 07:00 30 09/15/22 04:55 30 09/15/22 04:43 1 09/15/22 03:05 35 PG Care Time/CCT Total # of Minutes Spent Total Time Spent with Patient: Total time spent is greater than 50% in coordination of care (as documented) at patient's floor/unit and/or counseling patient: Coding Level of Care Code 83798 IN/OBS CONSULT LVL 5,80M Diagnoses Asthmatic bronchitis with acute exacerbation J45.901 Peripheral eosinophilia D72.19
[2022-09-15] MEDS ORDERED: FORMOTEROL 20 MCG/2 ML VIAL ONE (15:20)
[2022-09-15] MEDS: BUDESONIDE 0.5 MG/2 ML VIAL (PULMICORT) NEB SCH ×2 (15:22→19:44)
[2022-09-15] MEDS: guaiFENesin 600 MG TABCR PO SCH ×2 (15:44→20:29)
[2022-09-15] MEDS ORDERED: ARFORMOTEROL TART 15MCG/2ML VIAL INH SCH (19:00)
[2022-09-15] MEDS: FORMOTEROL 20 MCG/2 ML VIAL INH SCH (19:44)
[2022-09-16] MEDS: AZITHROMYCIN 500 MG in DEXTROSE 5% 250 ML IV SCH (01:43)
[2022-09-16] MEDS: methylPREDNISolone 40 MG in SYRINGE 0 ML IV SCH ×3 (01:43→18:15)
--- NOTE | 2022-09-16 05:35 | Electrocardiogram Report ---
Test Reason : Blood Pressure : / mmHG Vent. Rate : 132 BPM Atrial Rate : 132 BPM P-R Int : 132 ms QRS Dur : 060 ms QT Int : 290 ms P-R-T Axes : 073 068 035 degrees QTc Int : 429 ms Poor data quality, interpretation may be adversely affected Sinus tachycardia Nonspecific T wave abnormality No previous ECGs available Confirmed by Bismark Vergara ([id number]) on 09/16/2022 5:34:51 AM Referred By: REFERRED SELF Confirmed By:Bismark Vergara
[2022-09-16] MEDS: BUDESONIDE 0.5 MG/2 ML VIAL (PULMICORT) NEB SCH (06:58)
[2022-09-16] MEDS: FORMOTEROL 20 MCG/2 ML VIAL INH SCH (06:58)
[2022-09-16 07:42] LABS: BUN Creatinine Ratio 15.9 (10-20); Calcium 9.2 mg/dl (8.6-10.3); Creatinine Clr Calc Pharmacy 130.6 ml/min; Est GFR (African American) 144.2 ml/min; Est GFR (Non-African American) 124.4 ml/min; Potassium 4.5 mmol/L (3.5-5.1)
--- NOTE | 2022-09-16 08:28 | Pulmonology Progress Note ---
Date of Service September 16, 2022 Assessment & Plan (1) Asthmatic bronchitis with acute exacerbation: (2) Peripheral eosinophilia: Plan Patient presenting with status asthmaticus and hypercarbia. Bronchospasm has improved on exam. I spoke with the patient and the nurse and encouraged the patient to ambulate around the hallways without oxygen. If she is able to maintain her saturations in the mid 90s off of oxygen, then she can likely be discharged today. I would recommend to taper prednisone over the next 2 weeks. She should absolutely be sent home with a high-dose ICS/LABA inhaler such as Symbicort or similar alternative depending on insurance coverage. She had evidence of peripheral eosinophilia on admission. She likely has Th2 mediated asthma. She would benefit from high-dose maintenance ICS/LABA inhaler upon discharge. She does have a peak flow meter at home and notes that she rarely uses it. I encouraged her to use this on a regular basis to monitor for early signs of asthma exacerbation. She would benefit from outpatient PFTs and NIOX testing. She may eventually become a candidate for biologic therapy if she continues to have flares despite the use of high-dose ICS/LAMA inhaler. Thank you for allowing me to participate in the care of the patient. Admission and Anticipated Discharge Date Admission Date: September 15, 2022 Subjective Patient notes that she feels much better this morning. She denies any dyspnea with ambulation. Cough has improved. She slept reasonably well. She did have to wear oxygen overnight to maintain sats above 90. Physical Exam Physical Exam: PHYSICAL EXAM: Vital Signs: Reviewed Nurse's notes. MENTAL STATUS: Alert, oriented and coherent. NECK: Supple, non-tender. CHEST: Symmetrical expansion, no retractions or use of accessory muscles of respiration. HEART: Regular rate and normal heart sounds, no murmur, gallop or rub. LUNGS: Breath sounds equal but significantly diminished in intensity on both sides. Bilateral wheezes heard but no rales or pleuritic rub. SKIN: Warm, dry, no lesions or cyanosis. ABDOMEN: Soft, non-tender, no masses or organs felt. EXTREMITIES: No swelling, cyanosis or tenderness in the arms or legs. Results & Data Results & Data Vital Signs (Past 12 Hours) Vital Signs Temp Pulse Pulse Resp BP Pulse Ox O2 Del Method 09/16/22 08:18 37.0 C 79 20 120/79 97 Nasal Cannula 09/16/22 06:58 69 16 96 Nasal Cannula 09/16/22 03:03 37.0 C 67 18 141/82 H 97 Nasal Cannula 09/15/22 21:59 110 H 09/15/22 23:55 37.1 C 80 20 124/74 93 Nasal Cannula O2 Flow Rate 09/16/22 08:18 1.5 09/16/22 06:58 2 09/16/22 03:03 1 09/15/22 21:59 09/15/22 23:55 1 PG Care Time/CCT Total # of Minutes Spent Total Time Spent with Patient: Total time spent is greater than 50% in coordination of care (as documented) at patient's floor/unit and/or counseling patient: Coding Level of Care Code 68065 SUB INP/OBS CARE MIN Diagnoses Asthmatic bronchitis with acute exacerbation J45.901 Peripheral eosinophilia D72.19
[2022-09-16] MEDS: CETIRIZINE HCL 10 MG TABLET PO SCH (08:31)
[2022-09-16] MEDS: guaiFENesin 600 MG TABCR PO SCH (08:31)
[2022-09-16] MEDS: ALBUT/IPRATROP 3MG/0.5MG NEB 3 ML VIAL NEB SCH ×3 (08:36→15:50)
[2022-09-16] MEDS: FAMOTIDINE 20 MG in SYRINGE 3 ML IV SCH (08:38)
[2022-09-16 08:59] LABS: Estimated Average Glucose 103 mg/dl; Hemoglobin A1C 5.2 % (4.5-5.6)
[2022-09-16] MEDS ORDERED: ERGOCALCIFEROL 50,000 UNITS 1250 MCG CAP PO ONE (09:30)
[2022-09-16] MEDS ORDERED: FLUTICASONE/VILANTEROL 200/25MCG 14 PUFFS/INHALER INH SCH (18:00)
--- NOTE | 2022-09-16 18:30 | Discharge Summary ---
Date of Service September 16, 2022 Admission HPI Per Admitting Provider The patient is a 22-year-old female with a past medical history including asthma and asthma exacerbations, multiple allergies including to dust, pollen, cats and dogs. The patient presents as noted above. Upon arrival to the emergency department she was placed on BiPAP, and given magnesium sulfate 2 g IV, racemic epi x1, and a DuoNeb treatment. The patient did stabilize somewhat to these treatments, but was still wheezing considerably, and was referred for evaluation for admission. Her previous hospital admission was August 2021. She does also report a cough of green discolored sputum Discharge Exam gen - obese, audible wheezing from across the room mouth - MMM neck - no obvious JVD heart - tachy, s1 s2, no murmur lungs - EXTENSIVE wheezing all lung segments ant & post; no rales; airation fair; mild tachypnea noted abd - soft NT ND BS+ ext - no edema, pulses 2+ b/l psych - a/o x 3 Discharge Data Allergies Allergy/AdvReac Type Severity Reaction Status Date / Time cat dander Allergy Severe CAN Verified 09/14/22 22:50 TRIGGER ASTHMA ATTACK dog dander Allergy Severe CAN Verified 09/14/22 22:50 TRIGGER ASTHMA ATTACK house dust Allergy Severe CAN Verified 09/14/22 22:50 TRIGGER ASTHMA ATTACK pollen extracts Allergy Severe CAN Verified 09/14/22 22:50 TRIGGER ASTHMA ATTACK Consultations 09/14/22 23:23 ED Decision to Admit Stat 09/15/22 14:41 Consult Pulmonology Routine Hospital Course (1) Acute respiratory failure with hypoxia and hypercarbia: 2nd to #2 SEVERE resp failure with resp acidosis and very high pCO2 fortunately she improved with use of BIPAP all night now on to NC o2 VBG this am improved cont to Rx #2 (2) Asthma with status asthmaticus: SEVERE exacerbation in the setting of uncontrolled, severe, persistent asthma with daily symptoms. cont IV steroids 40mg TID. cont nebs. add mucinex. flutter valve/incentive toro. pulmonary consultation - defer to them selection of controller agents. she will need intensive outpatient f/u given the severity of her asthma. send sputum cx - r/o bacterial superinfection. resp BioFire panel obtained - completely negative. allergy induced?? does have eosinophilia. (3) Severe persistent asthma: will need ICS/LABA upon discharge - high dose consider singulair - likely has underlying allergies needs outpatient pulm f/u and PFTs, etc needs education about her asthma - triggers, etc see above appreciate pulm consutation (4) Snoring: needs sleep study marcos after discharge (5) Allergic symptoms: consider singulair cont zyrtec consider nasal steroid (6) Peripheral eosinophilia: (7) Obesity (BMI 30.0-34.9): check a1c check TSH check 25-OH vit D - there is strong association with severe vit D def + asthma Discharge Plan Discharge Items Patient Disposition: Home - Self-Care Reason For Visit: ACUTE RESPIRATORY FAILURE; ASTHMA EXACERBATION Discharge Diagnosis: 1. Acute respiratory failure due to SEVERE asthma exacerbation - improved 2. Asthma exacerbation - improved 3. Severe, uncontrolled, persistent asthma 4. Allergies 5. High suspicion for obstructive sleep apnea 6. Vitamin D deficiency (your level is 10; normal >30) Condition on Discharge: Good Activity: As commented below Activity Comment: LIGHT activities only for the next 7-10 days Exercise/Sports: Wait until after follow-up appointment Non-emergency contact: Primary Care Provider and [employer] T[employer] Call non-emergency contact if: you have any medication questions, your symptoms worsen and you have a fever Follow-up/Referrals: Jean Carlos Shepard MD [Physician] - 09/26/22 1:45 pm (With [place] ) [facility] [Primary Care Provider] - (see S in 3 days for recheck of asthma; you will need to call [facility] to schedule this appointment ) Diet: Regular Addtl Attending Provider Instructions: Ms Amin, You were hospitalized for a SEVERE asthma exacerbation. At the time of admission you were quite sick from your asthma, and you even needed the BIPAP machine for about 12 hours to improve. Fortunately you improved quickly with IV steroids, nebulizer treatments, etc. We tested you for a host of infections (viral, bacterial) all of which returned negative. We did not find RSV, influenza, COVID, or other respiratory viruses. It is very possible that your ongoing, daily, severe asthma symptoms are due to allergies in the environment (pets, smoke, dust, etc). You will need very close follow-up with [facility] Pulmonology to achieve better control of your asthma. There are different severity levels of asthma (mild, moderate, severe) and you have severe, persistent asthma. Without good treatment you will continue to have asthma flares and daily symptoms. Recommendations - 1. Prednisone course -- start this on 09/17/22. This is a 12-day steroid taper for the asthma. Take all tablets with food. The prednisone was called to the local [facility] for you. 2. Controller agent for your asthma -- while waiting for Symbicort to arrive from your pharmacy back home please take the Breo inhaler that we provided you at time of discharge. This medication contains an inhaled steroid and long- acting albuterol. Take 1 puff of Breo once a day. Rinse your mouth with water after each use (and be sure to spit the water out). Once your Symbicort arrives from your home pharmacy please STOP the Breo and switch to the Symbicort. Symbicort is taken via a spacer device; take 2 puffs via spacer twice daily every day. Again rinse your mouth with water after each use. 3. Albuterol -- ultimately the goal will be for you to only use albuterol less than 1-2 times each week. Once your asthma is under control this goal is achievable. During the current flare-up, however, you can continue to use your albuterol inhaler or albuterol neb treatments every 4-6 hours as needed for cough/wheeze/shortness of breath. 4. Continue to take a daily anti-histamine medication for your allergies; you can continue zyrtec (ceftirizine) 10mg once daily or shea (fexofenadine) 180mg each day. If you are taking 1 of these medications please avoid use of benadryl. All of the anti-histamines are [id number]. 5. Please use your peak flow meter on a regular basis. If you are falling into the "yellow" or "red" zones on your peak flow meter you need to seek medical attention as soon as possible. 6. Avoid smoke, excessive exposure to pets, dust, mold, etc. Consider dust mite covers for your bedding and pillows. Consider a HEPA air filter for you home and especially your bedroom to help with your air quality in your living space. 7. Light activities only until you see Dr Shepard the lung specialist. Please skip Dance Team for now since you will be recovering from your asthma attack/hospital stay. 8. Please ask Dr Shepard about having a sleep study to rule out sleep apnea in the near-future. 9. You are vitamin D deficient. Please start your vitamin D course next week as prescribed. This prescription was sent to your home pharmacy for you. The vitamin D capsule is taken once a week for 7 weeks. Follow-up - see separate section Return to [facility] if - * you have worsening shortness of breath, uncontrolled wheezing despite your inhalers/nebs, chest pain, etc * you are in the "red zone" on your peak flow meter * you have fevers over 100.4 degrees * any other concerns Continue to feel better! Dr Hung Pending Studies at Discharge: No Stand-Alone Forms: My [facility], Smoking Cessation Medications and DC Order Prescriptions: New albuterol sulfate [Ventolin HFA] 90 mcg/actuation HFA aerosol inhaler 2 inh inhalation Q4H PRN (Reason: shortness of breath or wheezing or cough) Qty: 8.5 2RF Rx Instructions: use with spacer device ergocalciferol (vitamin D2) 1,250 mcg (50,000 unit) capsule 50,000 unit PO .once a week Qty: 7 0RF Rx Instructions: take first dose on 09/23/22. prednisone 10 mg tablet 10 mg PO .daily as directed Qty: 42 0RF Rx Instructions: start 09/17/22: 6 tabs days 1/2; 5 tabs days 3/4; 4 tabs days 5/6; 3 tabs days 7/8; 2 tabs days 9/10; 1 tab days 11/12. Take with food. budesonide-formoterol [Symbicort] 160-4.5 mcg/actuation HFA aerosol inhaler 2 inh inhalation BID Qty: 10.2 2RF Rx Instructions: use with spacer device; rinse mouth with water after each use. fluticasone furoate-vilanterol [Breo Ellipta] 200-25 mcg/dose blister with device 1 inh inhalation DAILY 7 Days Qty: 1 0RF Rx Instructions: sample provided at time of discharge from hospital; for TEMPORARY use only until your symbicort is delivered. Changed albuterol sulfate 2.5 mg /3 mL (0.083 %) Solution For Nebulization 2.5 mg INHALATION Q4H PRN (Reason: cough/shortness of breath/wheezing) Qty: 1 0RF Discharge Orders: Discharge Order (Routine); Ordered 09/16/22 Ordered By: Benjy Pineda/Other Patient Handouts: Using an Inhaler with a Spacer, Asthma Triggers Allergens, Controlling Your Asthma, Asthma and Physical Activity, Asthma Inhaled Corticosteroids, Asthma- Using a Peak Flow Meter Admission Data Admit Date/Time: 09/15/22 00:18 Attending Provider: Benjy Hung Admit Provider: Romie Yanes Primary Care Provider: [facility] Other Providers: Jean Carlos Shepard ; Romie Yanes Other Interventions: Discharge Summary Assessment (RN) Last Done: 09/16/22 18:00 Coding Diagnoses Acute respiratory failure with hypoxia and hypercarbia J96.01; J96.02 Asthma with status asthmaticus J45.52 Asthma persistence: persistent Asthma severity: severe Severe persistent asthma J45.50 Snoring R06.83 Allergic symptoms T78.40XA Peripheral eosinophilia D72.19 Obesity (BMI 30.0-34.9) E66.9
[2022-09-16] MEDS ORDERED: FAMOTIDINE 20 MG TAB PO SCH (21:00)
== END 2022-09-16 18:58 | disposition home or self-care (01) | DRG 202 ==
LOC: ED 22:24 → SUATTDRO 09-15 00:18 → 2S 09-15 00:18